=== PATIENT | female | born 1975 | race Two or more races ===

== ENCOUNTER 2019-10-01 22:36 | Emergency (ER) | payer SELFPAY ==
[~2019-10-01] VITALS: Ht 167.6 cm; Wt 73.0 kg
[2019-10-02 02:03] VITALS: BP 128/79
== END 2019-10-02 02:16 | disposition home or self-care (01) ==
LOC: ER 22:36
DX: R07.89 Other chest pain (principal)
CPT/HCPCS: 36415; 71045; 84484; 99284